=== PATIENT | female | born 1980 | race Caucasian/White ===

== ENCOUNTER 2022-04-28 14:40 | Outpatient (REF) | payer MEDICAID, SELFPAY ==
[2022-04-27 21:42] LABS: HCT 30.1 %; HGB 8.7 g/dL; MCH 21.6 pg; MCHC 28.9 %; MCV 75 fL; MPV 11.6 fL; Platelet Count 371 10^3/uL; RBC 4.02 10^6/uL; RDW 16.5 %; WBC 4.73 10^3/uL
[2022-04-27 22:02] LABS: ALT 9 U/L; AST 24 U/L; Albumin 3.7 g/dL; Alkaline Phosphatase 65 U/L; Anion Gap 6.3 mmol/L; BUN 9 mg/dL; Bilirubin, Total 0.2 mg/dL; CO2 27.7 mmol/L; CREATININE 0.6 mg/dL; Calcium 8.8 mg/dL; Chloride 107 mmol/L; Glucose 104 mg/dL; Potassium 4.7 mmol/L; Sodium 141 mmol/L
[2022-04-29 10:38] LABS: Hepatitis C Ab w Rflx HCV PCR Negative (Negative)
[2022-04-29 10:49] LABS: HIV-1/2 Ag & Ab Screen Negative (Negative)
[2022-04-29 12:59] LABS: Chlamydia Result Negative (Negative); GC Result Negative (Negative)
== END 2022-04-28 14:41 | disposition home or self-care (01) ==
LOC: NCHCN 14:40
PROVIDERS: Visit Provider Nurse Practitioner Family
DX: D64.9 Anemia, unspecified (principal); D21.9 Benign neoplasm of connective and other soft tissue, unspecified; N93.9 Abnormal uterine and vaginal bleeding, unspecified; L30.9 Dermatitis, unspecified; Z11.3 Encounter for screening for infections with a predominantly sexual mode of transmission; Z11.59 Encounter for screening for other viral diseases
CPT/HCPCS: 80053; 85027; 86803; 87389; 87491; 87591

== ENCOUNTER 2022-08-03 15:30 | Outpatient (REF) | payer MEDICAID, SELFPAY ==
[2022-08-03 21:34] LABS: HCT 22.4 % (36.0-46.0); MCH 17.1 pg (27.0-33.0); MCHC 25.9 % (32.0-36.0); MCV 66 fL (80-95); Platelet Count 406 10^3/uL (130-400); RDW 18.6 % (11.7-14.6); RDW-SD 43.3 fL
[2022-08-03 21:43] LABS: HGB 5.8 g/dL (11.2-15.7)
[2022-08-03 22:16] LABS: Ferritin 3 ng/mL (8-252); Folate 15.3 ng/mL (8.6-20.0); Vitamin B12 177 pg/mL (193-986)
[2022-08-03 22:19] LABS: Vitamin D 25 Total 5.8 ng/mL (30-100)
== END 2022-08-03 15:31 | disposition home or self-care (01) ==
LOC: NCHCN 15:30
PROVIDERS: Visit Provider Nurse Practitioner Family
DX: R53.83 Other fatigue (principal); E55.9 Vitamin D deficiency, unspecified; E53.8 Deficiency of other specified B group vitamins; D64.9 Anemia, unspecified
CPT/HCPCS: 82306; 85027; 82607; 82728; 82746; 83735

== ENCOUNTER 2024-10-04 15:54 | Outpatient (REF) | payer BC, SELFPAY ==
[2024-10-04 16:35] LABS: Abs Immature Grans 0.01 10^3/uL (0.0-0.06); HCT 44.6 % (36.0-46.0); HGB 15.5 g/dL (11.2-15.7); Immature Grans % 0.2 %; MCH 30.0 pg (27.0-33.0); MCHC 34.8 % (32.0-36.0); MCV 86 fL (80-95); MPV 11.7 fL (8.0-11.0); Platelet Count 250 10^3/uL (130-400); RBC 5.17 10^6/uL (3.93-5.22); RDW 12.1 % (11.7-14.6); RDW-SD 38.4 fL; WBC 4.96 10^3/uL (4.4-10.8)
[2024-10-04 17:12] LABS: ALT 25 U/L (14-59); AST 17 U/L (15-37); Albumin 4.1 g/dL (3.4-5.0); Alkaline Phosphatase 69 U/L (46-116); Anion Gap 7.9 mmol/L (3-11); BUN 12 mg/dL (7-18); Bilirubin, Total 0.5 mg/dL (0.2-1.0); CO2 27.1 mmol/L (21.0-32.0); Calcium 9.0 mg/dL (8.5-10.1); Chloride 105 mmol/L (98-107); Estimated GFR 112.73 (mL/min/1.73m2); Ferritin 85 ng/mL (8-252); Glucose 94 mg/dL (74-106); Potassium 3.9 mmol/L (3.5-5.1); Sodium 140 mmol/L (136-145); TSH 1.67 uIU/mL (0.36-3.74); Total Protein 7.8 g/dL (6.4-8.2); Vitamin B12 835 pg/mL (193-986); Vitamin D 25 Total 39 ng/mL (30-100)
== END 2024-10-04 15:55 | disposition home or self-care (01) ==
LOC: NCHCN 15:54
PROVIDERS: PCP Nurse Practitioner Family; Visit Provider Internal Medicine
DX: E55.9 Vitamin D deficiency, unspecified (principal); R53.83 Other fatigue; E53.8 Deficiency of other specified B group vitamins
CPT/HCPCS: 80053; 82306; 82607; 82728; 84443; 85025